=== PATIENT | male | born 1960 | race Caucasian/White ===

== ENCOUNTER 2018-06-24 12:00 | Emergency (ER) | payer OTHER ==
[2018-06-24] MEDS: DIAZEPAM 5 MG/ML SYG IV ×2 (12:19→13:35)
[2018-06-24] MEDS: ONDANSETRON 4 MG INJ IV (12:19)
[2018-06-24] MEDS: METHYLPREDNISOLONE 125 MG INJ IV (12:20)
[2018-06-24 12:22] LABS: ADD MAN DIFF? NO
[2018-06-24] MEDS: HYDROmorphONE 1 MG/ML SYG IV ×2 (12:22→13:34)
[2018-06-24] MEDS: SOD CHLORIDE 0.9% 1,000 ML IV (12:23)
[2018-06-24 12:33] LABS: WHITE BLOOD COUNT 9.4 10^3/ul (4.8-10.8)
[2018-06-24 12:33] LABS: BASOPHIL # 0.1 10^3/ul (0.0-0.1); BASOPHILS % 0.9 % (0.0-2.0); EOSINOPHILS # 0.3 10^3/ul (0.0-0.5); EOSINOPHILS % 3.4 % (0.0-7.0); HEMATOCRIT 43.9 % (42.0-52.0); HEMOGLOBIN 14.5 g/dl (14.0-18.0); LYMPHOCYTES # 3.2 10^3/ul (0.8-2.9); LYMPHOCYTES % 34.2 % (15.0-51.0); MEAN CORPUSCULAR HEMOGLOBIN 29.1 pg (29.0-33.0); MEAN PLATELET VOLUME 10.5 fl (7.4-10.4); MONOCYTE # 0.7 10^3/ul (0.3-0.9); MONOCYTES % 7.4 % (0.0-11.0); NEUTROPHILS % 53.9 % (39.0-77.0); PLATELET COUNT 288 10^3/UL (140-415); RED BLOOD COUNT 4.99 10^6/ul (4.70-6.10); RED CELL DISTRIBUTION WIDTH 13.3 % (11.5-14.5)
[2018-06-24 12:55] LABS: ALANINE AMINOTRANSFERASE 22 IU/L (13-69); ALKALINE PHOSPHATASE 93 IU/L (42-121); AMYLASE 124 U/L (11-123); ANION GAP 15 (5-13); ASPARTATE AMINO TRANSFERASE 26 IU/L (15-46); BILIRUBIN,INDIRECT 0.4 mg/dl (0-1.1); BILIRUBIN,TOTAL 0.4 mg/dl (0.2-1.3); BLOOD UREA NITROGEN 31 mg/dl (7-20); CARBON DIOXIDE 26 mmol/L (21-31); CHLORIDE 102 mmol/L (97-110); CREATININE 0.93 mg/dl (0.61-1.24); Estimated GFR > 60 mL/min (>60); GLUCOSE 101 mg/dl (70-220); LIPASE 68 U/L (23-300); POTASSIUM 4.3 mmol/L (3.5-5.1); SODIUM 143 mmol/L (135-144); TOTAL PROTEIN 7.7 g/dl (6.1-8.1)
[2018-06-24 12:56] LABS: INR 0.93; PROTIME 12.6 Sec (11.9-14.9)
[2018-06-24 12:57] LABS: PARTIAL THROMBOPLASTIN TIME 27.9 Sec (23.0-35.0)
[2018-06-24 13:06] LABS: TROPONIN-I < 0.012 ng/ml (0.000-0.120)
[2018-06-24 13:32] LABS: ALBUMIN 4.3 g/dl (3.3-4.9)
[2018-06-24 13:33] LABS: ALBUMIN/GLOBULIN RATIO 1.26
== END 2018-06-24 15:35 | disposition home or self-care (01) ==
LOC: E/R 12:00
DX: M54.16 Radiculopathy, lumbar region (principal); M54.31 Sciatica, right side; M54.32 Sciatica, left side; I10 Essential (primary) hypertension; F17.210 Nicotine dependence, cigarettes, uncomplicated; Z79.01 Long term (current) use of anticoagulants; Z79.82 Long term (current) use of aspirin; Z98.61 Coronary angioplasty status
CPT/HCPCS: 72131; 80053; 82150; 83690; 84484; 85025; 85610; 85730; 93005; 96361; 96374; 96375; 96376; 99285-25